=== PATIENT | female | born 1945 | race Two or more races ===

== ENCOUNTER 2023-05-23 10:43 | Inpatient (IN) | payer OTHER ==
[2023-05-23 13:56] LABS: BASO % 0.2 % (0-2.0); EOS % 2.1 % (0-4.5); HEMATOCRIT 22.6 % (32.4-45.2); HEMOGLOBIN 7.6 GM/dL (10.7-15.3); MCH 30.8 pg (25.7-33.7); MCHC 33.5 g/dl (32.0-36.0); MEAN CELL VOLUME 91.8 fl (80-96); MONO % 6.8 % (3.8-10.2); NEUT % 79.9 % (42.8-82.8); PLATELET COUNT 177 10^3/uL (134-434); RBC 2.46 M/mm3 (3.60-5.2); RDW 20.1 % (11.6-15.6); WHITE BLOOD COUNT 5.7 K/mm3 (4.0-10.0)
[2023-05-23 14:02] LABS: PROTHROMBIN TIME (PATIENT) 11.6 SEC (9.7-13.0)
[2023-05-23 14:04] LABS: ACTIVATED PTT 36.3 SECONDS (25.2-36.5)
[2023-05-23 14:09] LABS: CHLORIDE 83 mmol/L (98-107); POTASSIUM 4.9 mmol/L (3.5-5.1); SODIUM 121 mmol/L (136-145)
[2023-05-23 14:11] LABS: ALBUMIN 1.8 g/dl (3.4-5.0); ANION GAP 11 mmol/L (4-13); CO2 28 mmol/L (21-32); GLUCOSE,RANDOM 248 mg/dL (74-106)
[2023-05-23 14:14] LABS: CREATININE 3.3 mg/dL (0.55-1.3); SGPT/ALT 38 U/L (13-61)
[2023-05-23 14:15] LABS: SGOT/AST 39 U/L (15-37)
[2023-05-23 14:16] LABS: BILIRUBIN,TOTAL 0.2 mg/dL (0.2-1); TOT PROT 6.2 g/dl (6.4-8.2)
[2023-05-23 14:17] LABS: ALK PHOS 154 U/L (45-117)
[2023-05-23 14:27] LABS: BLOOD UREA NITROGEN 139.1 mg/dL (7-18)
[2023-05-23] MEDS ORDERED: MEROPENEM 1 GM in DEXTROSE 5%-WATER 100 ML IVPB ONE (15:33)
[2023-05-23] MEDS ORDERED: VANCOMYCIN 1,000 MG in DEXTROSE 5%-WATER - 250 ML IVPB ONE (15:33)
[2023-05-23] MEDS ORDERED: MEROPENEM 1 GM VIAL (RESTRICTED TO ID) IVPB ONE ×2 (15:48→16:00)
[2023-05-23] MEDS ORDERED: VANCOMYCIN 1 GRAM (PRE-DOCKED) 1,000 MG/250 ML BAG IVPB ONE (15:49)
[2023-05-23] MEDS ORDERED: FUROSEMIDE 40 MG/4 ML INJECTABLE VIAL IVPUSH ONE (19:40)
[2023-05-23] MEDS: HEPARIN NA (PORCINE) 5,000 UNITS/ML 1ML VIAL SQ SCH (21:17)
[2023-05-23] MEDS: MUPIROCIN 2% TOPICAL OINTMENT FOR DECOLONIZATION NS SCH (21:18)
[2023-05-23] MEDS: CHLORHEXIDINE GLUCONATE 4% CLEANSER FOR DECOLONIZATION TP SCH (21:19)
[2023-05-23 21:25] LABS: HEMATOCRIT 19.5 % (32.4-45.2); MCH 30.7 pg (25.7-33.7); MCHC 34.3 g/dl (32.0-36.0); MEAN CELL VOLUME 89.3 fl (80-96); MEAN PLT VOLUME 9.8 fl (7.5-11.1); PLATELET COUNT 165 10^3/uL (134-434); RBC 2.19 M/mm3 (3.60-5.2); RDW 20.6 % (11.6-15.6); WHITE BLOOD COUNT 5.2 K/mm3 (4.0-10.0)
[2023-05-23] MEDS: ATORVASTATIN CA 80 MG TABLET (FP) GT SCH (21:26)
[2023-05-23 21:37] LABS: HEMOGLOBIN 6.7 GM/dL (10.7-15.3)
[2023-05-23 21:43] LABS: CHLORIDE 82 mmol/L (98-107); POTASSIUM 4.6 mmol/L (3.5-5.1); SODIUM 122 mmol/L (136-145)
[2023-05-23 21:44] LABS: ANION GAP 11 mmol/L (4-13); CALCIUM 7.6 mg/dL (8.5-10.1); CO2 29 mmol/L (21-32)
[2023-05-23 21:45] LABS: GLUCOSE,RANDOM 245 mg/dL (74-106)
[2023-05-23 21:48] LABS: PHOSPHOROUS 2.9 mg/dL (2.5-4.9)
[2023-05-23 21:49] LABS: CREATININE 3.5 mg/dL (0.55-1.3)
[2023-05-23] MEDS ORDERED: BUMETANIDE INJECTION 1 MG/4 ML VIAL IVPUSH ONE (21:55)
[2023-05-23 22:03] LABS: BLOOD UREA NITROGEN 139.8 mg/dL (7-18)
[2023-05-23] MEDS: LATANOPROST 0.005% OPHTH SOLN 2.5ML BOTTLE OU SCH (22:38)
[2023-05-23] MEDS: INSULIN SLIDING SCALE (NOVOLOG) 1 VIAL SQ SCH (22:43)
[2023-05-24] MEDS ORDERED: FUROSEMIDE IVPB SCH (00:15)
[2023-05-24] MEDS ORDERED: DEXTROSE 5% IVPB SCH (00:15)
[2023-05-24] MEDS ORDERED: WATER IVPB SCH (00:15)
[2023-05-24] MEDS ORDERED: FUROSEMIDE INJECTION 100 MG in DEXTROSE 5%-WATER - 90 ML IVPB SCH (00:46)
[2023-05-24] MEDS: FUROSEMIDE INJECTION 100 MG in DEXTROSE 5%-WATER - 90 ML IVPB SCH ×3 (02:12→19:43)
[2023-05-24] MEDS: INSULIN SLIDING SCALE (NOVOLOG) 1 VIAL SQ SCH ×4 (06:48→21:58)
[2023-05-24] MEDS: HEPARIN NA (PORCINE) 5,000 UNITS/ML 1ML VIAL SQ SCH ×3 (06:48→21:46)
[2023-05-24 06:52] LABS: CHLORIDE 84 mmol/L (98-107); POTASSIUM 4.9 mmol/L (3.5-5.1); SODIUM 122 mmol/L (136-145)
[2023-05-24 06:54] LABS: ALBUMIN 1.9 g/dl (3.4-5.0); ANION GAP 11 mmol/L (4-13); CALCIUM 7.4 mg/dL (8.5-10.1); CO2 27 mmol/L (21-32); GLUCOSE,RANDOM 208 mg/dL (74-106)
[2023-05-24 06:57] LABS: CREATININE 3.5 mg/dL (0.55-1.3); PHOSPHOROUS 2.6 mg/dL (2.5-4.9); SGOT/AST 44 U/L (15-37); SGPT/ALT 43 U/L (13-61)
[2023-05-24 06:58] LABS: HEMATOCRIT 26.4 % (32.4-45.2); HEMOGLOBIN 9.3 GM/dL (10.7-15.3); MCH 30.7 pg (25.7-33.7); MCHC 35.4 g/dl (32.0-36.0); MEAN CELL VOLUME 86.9 fl (80-96); MEAN PLT VOLUME 10.1 fl (7.5-11.1); PLATELET COUNT 176 10^3/uL (134-434); RBC 3.04 M/mm3 (3.60-5.2); RDW 19.1 % (11.6-15.6); RETICULOCYTES 5.16 % (0.5-1.5); WHITE BLOOD COUNT 6.7 K/mm3 (4.0-10.0)
[2023-05-24 06:59] LABS: BILIRUBIN,TOTAL 0.4 mg/dL (0.2-1); TOT PROT 6.2 g/dl (6.4-8.2)
[2023-05-24 07:00] LABS: ALK PHOS 161 U/L (45-117)
[2023-05-24 07:15] LABS: IRON SERUM 79 ug/dL (50-175); TOTAL IRON BINDING CAPACITY 194 ug/dL (250-450)
[2023-05-24 07:21] LABS: BLOOD UREA NITROGEN 142.3 mg/dL (7-18)
[2023-05-24 09:21] LABS: EPI CELLS 24 /uL (0-25.1); HYALINE CASTS 7 /uL (0-3.1); URINE APPEARANCE TURBID; URINE BILIRUBIN NEGATIVE (NEGATIVE); URINE COLOR DK YELLOW; URINE GLUCOSE (UA) NEGATIVE (NEGATIVE); URINE KETONE NEGATIVE (NEGATIVE); URINE LEUK ESTERASE 1+ (NEGATIVE); URINE NITRITE NEGATIVE (NEGATIVE); URINE PROTEIN 2+ (NEGATIVE); URINE UROBILINOGEN 0.2 mg/dL (0.2-1.0); URINE WBC 63 /uL (0-25.8)
[2023-05-24 09:47] LABS: ANISOCYTOSIS 0; HELMET CELLS 0; HOWELL-JOLLY BODIES 0; MACROCYTOSIS 0; OVALOCYTE 0; ROULEAU 0; SICKELED CELLS 0; TARGET CELLS 0; TEAR DROP CELLS 0; TOXIC GRANULATION 0
[2023-05-24 10:12] LABS: URINE BACTERIA 12 /uL (0-1359); URINE RBC 227 /uL (0-23.9)
[2023-05-24] MEDS: PANTOPRAZOLE SODIUM 40 MG VIAL IVPUSH SCH (10:18)
[2023-05-24] MEDS: ZINC SULFATE 220 MG CAPSULE (FP) GT SCH (10:18)
[2023-05-24] MEDS: CLOPIDOGREL BISULFATE 75 MG TABLET (FP) GT SCH (10:18)
[2023-05-24] MEDS: ASCORBIC ACID 500 MG TABLET (FP) GT SCH (10:18)
[2023-05-24] MEDS: ASPIRIN 81 MG CHEWABLE TABLETS GT SCH (10:18)
[2023-05-24] MEDS: MUPIROCIN 2% TOPICAL OINTMENT FOR DECOLONIZATION NS SCH ×2 (10:19→21:47)
[2023-05-24] MEDS: LATANOPROST 0.005% OPHTH SOLN 2.5ML BOTTLE OU SCH (21:47)
[2023-05-24] MEDS: ATORVASTATIN CA 80 MG TABLET (FP) GT SCH (21:48)
[2023-05-24] MEDS: CHLORHEXIDINE GLUCONATE 4% CLEANSER FOR DECOLONIZATION TP SCH (21:48)
[2023-05-25] MEDS: FUROSEMIDE INJECTION 100 MG in DEXTROSE 5%-WATER - 90 ML IVPB SCH ×4 (00:10→17:04)
[2023-05-25] MEDS: HEPARIN NA (PORCINE) 5,000 UNITS/ML 1ML VIAL SQ SCH ×3 (06:38→21:18)
[2023-05-25] MEDS: INSULIN SLIDING SCALE (NOVOLOG) 1 VIAL SQ SCH ×4 (06:38→21:27)
[2023-05-25] MEDS: ZINC SULFATE 220 MG CAPSULE (FP) GT SCH (10:01)
[2023-05-25] MEDS: MUPIROCIN 2% TOPICAL OINTMENT FOR DECOLONIZATION NS SCH ×2 (10:01→21:17)
[2023-05-25] MEDS: PANTOPRAZOLE SODIUM 40 MG VIAL IVPUSH SCH (10:01)
[2023-05-25] MEDS: AMINO ACIDS/PROTEIN HYDROLYS 30 ML LIQUID.PKT PO SCH (10:01)
[2023-05-25] MEDS: ASPIRIN 81 MG CHEWABLE TABLETS GT SCH (10:01)
[2023-05-25] MEDS: CLOPIDOGREL BISULFATE 75 MG TABLET (FP) GT SCH (10:01)
[2023-05-25] MEDS: ASCORBIC ACID 500 MG TABLET (FP) GT SCH (10:01)
[2023-05-25] MEDS ORDERED: FUROSEMIDE 40 MG/4 ML INJECTABLE VIAL ONE (11:09)
[2023-05-25 12:15] LABS: CHLORIDE 83 mmol/L (98-107); POTASSIUM 4.8 mmol/L (3.5-5.1)
[2023-05-25 12:17] LABS: CALCIUM 7.8 mg/dL (8.5-10.1)
[2023-05-25 12:18] LABS: ALBUMIN 1.7 g/dl (3.4-5.0); CO2 25 mmol/L (21-32); GLUCOSE,RANDOM 226 mg/dL (74-106); MAGNESIUM 2.9 mg/dL (1.8-2.4)
[2023-05-25 12:21] LABS: BASO % 0.5 % (0-2.0); CREATININE 3.5 mg/dL (0.55-1.3); EOS % 4.1 % (0-4.5); HEMATOCRIT 26.8 % (32.4-45.2); HEMOGLOBIN 9.4 GM/dL (10.7-15.3); LYMPH % 25.5 % (8-40); MCH 31.1 pg (25.7-33.7); MCHC 35.1 g/dl (32.0-36.0); MEAN CELL VOLUME 88.7 fl (80-96); MEAN PLT VOLUME 9.6 fl (7.5-11.1); MONO % 9.9 % (3.8-10.2); PLATELET COUNT 200 10^3/uL (134-434); RBC 3.02 M/mm3 (3.60-5.2); RDW 19.5 % (11.6-15.6); SGOT/AST 53 U/L (15-37); SGPT/ALT 51 U/L (13-61); WHITE BLOOD COUNT 6.6 K/mm3 (4.0-10.0)
[2023-05-25 12:22] LABS: BILIRUBIN,TOTAL 0.4 mg/dL (0.2-1)
[2023-05-25 12:23] LABS: TOT PROT 5.8 g/dl (6.4-8.2)
[2023-05-25 12:24] LABS: ALK PHOS 161 U/L (45-117)
[2023-05-25 12:29] LABS: ANION GAP 12 mmol/L (4-13); SODIUM 120 mmol/L (136-145)
[2023-05-25 13:01] LABS: BLOOD UREA NITROGEN 143.7 mg/dL (7-18)
[2023-05-25 18:52] LABS: CHLORIDE 84 mmol/L (98-107); POTASSIUM 5.8 mmol/L (3.5-5.1)
[2023-05-25 18:54] LABS: CALCIUM 7.8 mg/dL (8.5-10.1); CO2 23 mmol/L (21-32); GLUCOSE,RANDOM 225 mg/dL (74-106)
[2023-05-25 18:57] LABS: CREATININE 3.6 mg/dL (0.55-1.3)
[2023-05-25 19:03] LABS: ANION GAP 12 mmol/L (4-13); BLOOD UREA NITROGEN 145.4 mg/dL (7-18); SODIUM 119 mmol/L (136-145)
[2023-05-25] MEDS: LATANOPROST 0.005% OPHTH SOLN 2.5ML BOTTLE OU SCH (21:18)
[2023-05-25] MEDS: ATORVASTATIN CA 80 MG TABLET (FP) GT SCH (21:20)
[2023-05-25] MEDS: CHLORHEXIDINE GLUCONATE 4% CLEANSER FOR DECOLONIZATION TP SCH (21:20)
[2023-05-26] MEDS: HEPARIN NA (PORCINE) 5,000 UNITS/ML 1ML VIAL SQ SCH ×3 (05:37→21:18)
[2023-05-26] MEDS: INSULIN SLIDING SCALE (NOVOLOG) 1 VIAL SQ SCH ×4 (06:06→21:24)
[2023-05-26 07:54] LABS: BASO % 0.6 % (0-2.0); EOS % 3.9 % (0-4.5); HEMATOCRIT 25.8 % (32.4-45.2); LYMPH % 23.1 % (8-40); MCHC 34.9 g/dl (32.0-36.0); MEAN CELL VOLUME 88.9 fl (80-96); MEAN PLT VOLUME 9.2 fl (7.5-11.1); MONO % 9.3 % (3.8-10.2); NEUT % 63.1 % (42.8-82.8); PLATELET COUNT 204 10^3/uL (134-434); RBC 2.91 M/mm3 (3.60-5.2); RDW 19.7 % (11.6-15.6); WHITE BLOOD COUNT 6.6 K/mm3 (4.0-10.0)
[2023-05-26 08:14] LABS: MAGNESIUM 2.8 mg/dL (1.8-2.4)
[2023-05-26 08:17] LABS: PHOSPHOROUS 2.9 mg/dL (2.5-4.9)
[2023-05-26 08:59] LABS: CHLORIDE 84 mmol/L (98-107); POTASSIUM 4.4 mmol/L (3.5-5.1); SODIUM 122 mmol/L (136-145)
[2023-05-26 09:04] LABS: ALBUMIN 1.8 g/dl (3.4-5.0); ANION GAP 12 mmol/L (4-13); CO2 26 mmol/L (21-32); GLUCOSE,RANDOM 282 mg/dL (74-106)
[2023-05-26 09:06] LABS: BILIRUBIN,TOTAL 0.3 mg/dL (0.2-1); TOT PROT 5.8 g/dl (6.4-8.2)
[2023-05-26 09:07] LABS: CREATININE 3.5 mg/dL (0.55-1.3); SGOT/AST 47 U/L (15-37); SGPT/ALT 49 U/L (13-61)
[2023-05-26 09:08] LABS: ALK PHOS 158 U/L (45-117)
[2023-05-26 09:10] LABS: BLOOD UREA NITROGEN 148.5 mg/dL (7-18)
[2023-05-26] MEDS: PANTOPRAZOLE SODIUM 40 MG VIAL IVPUSH SCH (09:49)
[2023-05-26] MEDS: MUPIROCIN 2% TOPICAL OINTMENT FOR DECOLONIZATION NS SCH ×2 (09:49→21:22)
[2023-05-26] MEDS: ASCORBIC ACID 500 MG TABLET (FP) GT SCH (09:49)
[2023-05-26] MEDS: ZINC SULFATE 220 MG CAPSULE (FP) GT SCH (09:49)
[2023-05-26] MEDS: ASPIRIN 81 MG CHEWABLE TABLETS GT SCH (09:49)
[2023-05-26] MEDS: CLOPIDOGREL BISULFATE 75 MG TABLET (FP) GT SCH (09:49)
[2023-05-26] MEDS: AMINO ACIDS/PROTEIN HYDROLYS 30 ML LIQUID.PKT PO SCH (09:49)
[2023-05-26 10:59] LABS: INR 1.01 (0.83-1.09); PROTHROMBIN TIME (PATIENT) 11.7 SEC (9.7-13.0)
[2023-05-26] MEDS ORDERED: INSULIN (NOVOLOG) ASPART 100 UNITS/ML 10ML VIAL ONE (14:02)
[2023-05-26] MEDS: FUROSEMIDE INJECTION 100 MG in DEXTROSE 5%-WATER - 90 ML IVPB SCH ×2 (14:04→20:22)
[2023-05-26] MEDS: CHLORHEXIDINE GLUCONATE 4% CLEANSER FOR DECOLONIZATION TP SCH (21:18)
[2023-05-26] MEDS: LATANOPROST 0.005% OPHTH SOLN 2.5ML BOTTLE OU SCH (21:22)
[2023-05-26] MEDS: ATORVASTATIN CA 80 MG TABLET (FP) GT SCH (21:24)
[2023-05-27] MEDS: INSULIN SLIDING SCALE (NOVOLOG) 1 VIAL SQ SCH ×4 (06:26→21:18)
[2023-05-27] MEDS: HEPARIN NA (PORCINE) 5,000 UNITS/ML 1ML VIAL SQ SCH ×3 (06:26→21:18)
[2023-05-27] MEDS: FUROSEMIDE INJECTION 100 MG in DEXTROSE 5%-WATER - 90 ML IVPB SCH ×2 (06:31→21:17)
[2023-05-27 07:35] LABS: BASO % 0.5 % (0-2.0); EOS % 4.3 % (0-4.5); HEMATOCRIT 24.6 % (32.4-45.2); HEMOGLOBIN 8.6 GM/dL (10.7-15.3); LYMPH % 21.7 % (8-40); MCH 31.1 pg (25.7-33.7); MCHC 34.8 g/dl (32.0-36.0); MEAN CELL VOLUME 89.3 fl (80-96); MONO % 10.5 % (3.8-10.2); PLATELET COUNT 185 10^3/uL (134-434); RBC 2.76 M/mm3 (3.60-5.2)
[2023-05-27 08:01] LABS: CHLORIDE 85 mmol/L (98-107); POTASSIUM 4.1 mmol/L (3.5-5.1); SODIUM 124 mmol/L (136-145)
[2023-05-27 08:04] LABS: ALBUMIN 1.7 g/dl (3.4-5.0); ANION GAP 9 mmol/L (4-13); CALCIUM 8.1 mg/dL (8.5-10.1); CO2 30 mmol/L (21-32); MAGNESIUM 2.8 mg/dL (1.8-2.4)
[2023-05-27 08:05] LABS: GLUCOSE,RANDOM 252 mg/dL (74-106)
[2023-05-27 08:07] LABS: CREATININE 3.3 mg/dL (0.55-1.3); PHOSPHOROUS 3.1 mg/dL (2.5-4.9); SGPT/ALT 40 U/L (13-61)
[2023-05-27 08:08] LABS: SGOT/AST 34 U/L (15-37)
[2023-05-27 08:09] LABS: BILIRUBIN,TOTAL 0.5 mg/dL (0.2-1); TOT PROT 5.7 g/dl (6.4-8.2)
[2023-05-27 08:10] LABS: ALK PHOS 141 U/L (45-117)
[2023-05-27 08:24] LABS: BLOOD UREA NITROGEN 150.8 mg/dL (7-18)
[2023-05-27] MEDS: AMINO ACIDS/PROTEIN HYDROLYS 30 ML LIQUID.PKT PO SCH (10:51)
[2023-05-27] MEDS: ZINC SULFATE 220 MG CAPSULE (FP) GT SCH (10:51)
[2023-05-27] MEDS: CLOPIDOGREL BISULFATE 75 MG TABLET (FP) GT SCH (10:51)
[2023-05-27] MEDS: ASCORBIC ACID 500 MG TABLET (FP) GT SCH (10:51)
[2023-05-27] MEDS: ASPIRIN 81 MG CHEWABLE TABLETS GT SCH (10:51)
[2023-05-27] MEDS: MUPIROCIN 2% TOPICAL OINTMENT FOR DECOLONIZATION NS SCH ×2 (10:52→21:17)
[2023-05-27] MEDS: SODIUM CHLORIDE 1 GM TABLET GT SCH (11:35)
[2023-05-27] MEDS: PANTOPRAZOLE SODIUM 40 MG VIAL IVPUSH SCH (21:16)
[2023-05-27] MEDS: CHLORHEXIDINE GLUCONATE 4% CLEANSER FOR DECOLONIZATION TP SCH (21:18)
[2023-05-27] MEDS: LATANOPROST 0.005% OPHTH SOLN 2.5ML BOTTLE OU SCH (21:18)
[2023-05-27] MEDS: ATORVASTATIN CA 80 MG TABLET (FP) GT SCH (21:18)
[2023-05-27] MEDS ORDERED: FUROSEMIDE INJECTION 100 MG in DEXTROSE 5%-WATER - 90 ML IVPB SCH (21:33)
[2023-05-28] MEDS: HEPARIN NA (PORCINE) 5,000 UNITS/ML 1ML VIAL SQ SCH ×3 (06:21→22:01)
[2023-05-28] MEDS: INSULIN SLIDING SCALE (NOVOLOG) 1 VIAL SQ SCH ×4 (06:22→22:01)
[2023-05-28 08:01] LABS: HEMATOCRIT 26.6 % (32.4-45.2); HEMOGLOBIN 9.1 GM/dL (10.7-15.3); MCH 30.8 pg (25.7-33.7); MCHC 34.1 g/dl (32.0-36.0); MEAN CELL VOLUME 90.3 fl (80-96); MEAN PLT VOLUME 8.7 fl (7.5-11.1); PLATELET COUNT 205 10^3/uL (134-434); RBC 2.95 M/mm3 (3.60-5.2); WHITE BLOOD COUNT 7.6 K/mm3 (4.0-10.0)
[2023-05-28 08:10] LABS: PROTHROMBIN TIME (PATIENT) 11.6 SEC (9.7-13.0)
[2023-05-28 08:12] LABS: ACTIVATED PTT 34.5 SECONDS (25.2-36.5)
[2023-05-28 08:25] LABS: CHLORIDE 84 mmol/L (98-107); POTASSIUM 3.7 mmol/L (3.5-5.1); SODIUM 125 mmol/L (136-145)
[2023-05-28 08:31] LABS: CALCIUM 8.3 mg/dL (8.5-10.1)
[2023-05-28 08:32] LABS: ANION GAP 11 mmol/L (4-13); CO2 30 mmol/L (21-32); GLUCOSE,RANDOM 277 mg/dL (74-106); MAGNESIUM 2.7 mg/dL (1.8-2.4)
[2023-05-28 08:35] LABS: PHOSPHOROUS 3.1 mg/dL (2.5-4.9)
[2023-05-28 08:36] LABS: BLOOD UREA NITROGEN 148.3 mg/dL (7-18); CREATININE 3.2 mg/dL (0.55-1.3)
[2023-05-28] MEDS: AMINO ACIDS/PROTEIN HYDROLYS 30 ML LIQUID.PKT PO SCH (09:40)
[2023-05-28] MEDS: MUPIROCIN 2% TOPICAL OINTMENT FOR DECOLONIZATION NS SCH (10:00)
[2023-05-28] MEDS: CLOPIDOGREL BISULFATE 75 MG TABLET (FP) GT SCH (10:00)
[2023-05-28] MEDS: FAMOTIDINE 20 MG/2.5 ML ORAL LIQUID PEG SCH (10:00)
[2023-05-28] MEDS: ZINC SULFATE 220 MG CAPSULE (FP) GT SCH (10:26)
[2023-05-28] MEDS: ASCORBIC ACID 500 MG TABLET (FP) GT SCH (10:27)
[2023-05-28] MEDS: ASPIRIN 81 MG CHEWABLE TABLETS GT SCH (10:27)
[2023-05-28] MEDS: SODIUM CHLORIDE 1 GM TABLET GT SCH (10:40)
[2023-05-28] MEDS ORDERED: INSULIN (NOVOLOG) ASPART 100 UNITS/ML 10ML VIAL ONE ×2 (18:19→22:00)
[2023-05-28] MEDS: ATORVASTATIN CA 80 MG TABLET (FP) GT SCH (22:00)
[2023-05-28] MEDS: INSULIN (LEVEMIR) 100 UNITS/ML UNITS SQ SCH (22:01)
[2023-05-28] MEDS: LATANOPROST 0.005% OPHTH SOLN 2.5ML BOTTLE OU SCH (22:01)
[2023-05-28] MEDS: CHLORHEXIDINE GLUCONATE 4% CLEANSER FOR DECOLONIZATION TP SCH (22:01)
[2023-05-29] MEDS: INSULIN (LEVEMIR) 100 UNITS/ML UNITS SQ SCH ×2 (06:17→21:51)
[2023-05-29] MEDS: HEPARIN NA (PORCINE) 5,000 UNITS/ML 1ML VIAL SQ SCH ×2 (06:17→13:02)
[2023-05-29] MEDS: FUROSEMIDE 40 MG/4 ML INJECTABLE VIAL IVPUSH SCH ×2 (06:17→15:00)
[2023-05-29] MEDS: INSULIN SLIDING SCALE (NOVOLOG) 1 VIAL SQ SCH ×4 (06:18→21:50)
[2023-05-29] MEDS: FAMOTIDINE 20 MG/2.5 ML ORAL LIQUID PEG SCH (10:18)
[2023-05-29] MEDS: ASPIRIN 81 MG CHEWABLE TABLETS GT SCH (10:18)
[2023-05-29] MEDS: ASCORBIC ACID 500 MG TABLET (FP) GT SCH (10:18)
[2023-05-29] MEDS: SODIUM CHLORIDE 1 GM TABLET GT SCH (10:18)
[2023-05-29] MEDS: CLOPIDOGREL BISULFATE 75 MG TABLET (FP) GT SCH (10:18)
[2023-05-29] MEDS: AMINO ACIDS/PROTEIN HYDROLYS 30 ML LIQUID.PKT PO SCH (10:18)
[2023-05-29] MEDS: ZINC SULFATE 220 MG CAPSULE (FP) GT SCH (10:18)
[2023-05-29 11:02] LABS: BASO % 0.5 % (0-2.0); EOS % 2.9 % (0-4.5); HEMATOCRIT 22.7 % (32.4-45.2); HEMOGLOBIN 7.7 GM/dL (10.7-15.3); MCH 30.7 pg (25.7-33.7); MCHC 34.1 g/dl (32.0-36.0); MEAN PLT VOLUME 8.5 fl (7.5-11.1); MONO % 11.5 % (3.8-10.2); NEUT % 69.1 % (42.8-82.8); PLATELET COUNT 169 10^3/uL (134-434); RBC 2.52 M/mm3 (3.60-5.2); RDW 18.5 % (11.6-15.6); WHITE BLOOD COUNT 8.4 K/mm3 (4.0-10.0)
[2023-05-29 11:26] LABS: CHLORIDE 87 mmol/L (98-107); POTASSIUM 3.4 mmol/L (3.5-5.1); SODIUM 127 mmol/L (136-145)
[2023-05-29 11:29] LABS: ANION GAP 8 mmol/L (4-13); CALCIUM 8.3 mg/dL (8.5-10.1); CO2 33 mmol/L (21-32); GLUCOSE,RANDOM 272 mg/dL (74-106)
[2023-05-29 11:30] LABS: ALBUMIN 1.5 g/dl (3.4-5.0); MAGNESIUM 2.5 mg/dL (1.8-2.4)
[2023-05-29 11:32] LABS: SGOT/AST 50 U/L (15-37); SGPT/ALT 48 U/L (13-61)
[2023-05-29 11:33] LABS: PHOSPHOROUS 3.4 mg/dL (2.5-4.9)
[2023-05-29 11:34] LABS: BILIRUBIN,TOTAL 0.7 mg/dL (0.2-1); TOT PROT 5.4 g/dl (6.4-8.2)
[2023-05-29 11:35] LABS: ALK PHOS 141 U/L (45-117)
[2023-05-29 12:09] LABS: BLOOD UREA NITROGEN 148.8 mg/dL (7-18)
[2023-05-29 15:57] VITALS: BMI 31.2
[2023-05-29] MEDS: PANTOPRAZOLE SODIUM 40 MG VIAL IVPUSH SCH ×2 (16:37→21:51)
[2023-05-29] MEDS: AMINO ACIDS 4.25%/D5W 1,000 ML IV SCH (16:37)
[2023-05-29] MEDS ORDERED: AMINO ACIDS/PROTEIN HYDROLYS 30 ML LIQUID.PKT GT SCH (17:39)
[2023-05-29] MEDS: CHLORHEXIDINE GLUCONATE 4% CLEANSER FOR DECOLONIZATION TP SCH (21:51)
[2023-05-29] MEDS: LATANOPROST 0.005% OPHTH SOLN 2.5ML BOTTLE OU SCH (21:51)
[2023-05-29] MEDS: ATORVASTATIN CA 80 MG TABLET (FP) GT SCH (21:51)
[2023-05-30] MEDS: FUROSEMIDE 40 MG/4 ML INJECTABLE VIAL IVPUSH SCH ×2 (06:09→13:43)
[2023-05-30] MEDS: INSULIN (LEVEMIR) 100 UNITS/ML UNITS SQ SCH ×2 (06:09→22:31)
[2023-05-30] MEDS: INSULIN SLIDING SCALE (NOVOLOG) 1 VIAL SQ SCH ×4 (06:09→22:50)
[2023-05-30 07:11] LABS: CHLORIDE 88 mmol/L (98-107); POTASSIUM 3.3 mmol/L (3.5-5.1); SODIUM 130 mmol/L (136-145)
[2023-05-30 07:14] LABS: ALBUMIN 1.6 g/dl (3.4-5.0); ANION GAP 12 mmol/L (4-13); CO2 31 mmol/L (21-32); GLUCOSE,RANDOM 143 mg/dL (74-106); MAGNESIUM 2.4 mg/dL (1.8-2.4)
[2023-05-30 07:17] LABS: CREATININE 2.9 mg/dL (0.55-1.3); PHOSPHOROUS 3.3 mg/dL (2.5-4.9); SGOT/AST 39 U/L (15-37)
[2023-05-30 07:19] LABS: ALK PHOS 144 U/L (45-117); TOT PROT 5.8 g/dl (6.4-8.2)
[2023-05-30 07:26] LABS: CALCIUM 7.8 mg/dL (8.5-10.1); SGPT/ALT 41 U/L (13-61)
[2023-05-30 07:34] LABS: BLOOD UREA NITROGEN 151.7 mg/dL (7-18)
[2023-05-30 07:35] LABS: BASO % 0.6 % (0-2.0); EOS % 2.3 % (0-4.5); HEMATOCRIT 23.5 % (32.4-45.2); HEMOGLOBIN 7.8 GM/dL (10.7-15.3); LYMPH % 17.2 % (8-40); MCH 29.8 pg (25.7-33.7); MCHC 33.3 g/dl (32.0-36.0); MEAN CELL VOLUME 89.6 fl (80-96); MEAN PLT VOLUME 8.6 fl (7.5-11.1); NEUT % 71.9 % (42.8-82.8); PLATELET COUNT 177 10^3/uL (134-434); RBC 2.63 M/mm3 (3.60-5.2); RDW 18.7 % (11.6-15.6); WHITE BLOOD COUNT 11.4 K/mm3 (4.0-10.0)
[2023-05-30] MEDS: KCL 10 MEQ IVPB 10 MEQ/100 ML INFUS.BAG IVPB SCH ×2 (09:32→10:52)
[2023-05-30] MEDS: PANTOPRAZOLE SODIUM 40 MG VIAL IVPUSH SCH ×2 (09:33→22:31)
[2023-05-30] MEDS: ZINC SULFATE 220 MG CAPSULE (FP) GT SCH (09:33)
[2023-05-30] MEDS ORDERED: VITAMIN B COMP W-C 1 EA TABLET (NEPHRO-VITE) GT SCH (10:00)
[2023-05-30] MEDS: CLOPIDOGREL BISULFATE 75 MG TABLET (FP) PO SCH (17:21)
[2023-05-30] MEDS: ASPIRIN 81 MG CHEWABLE TABLETS GT SCH (17:21)
[2023-05-30] MEDS: AMINO ACIDS 4.25%/D5W 1,000 ML IV SCH (17:21)
[2023-05-30 18:53] LABS: GAMMA GLUTAMYL TRANSPEPTIDASE 49 U/L (5-85)
[2023-05-30] MEDS: CHLORHEXIDINE GLUCONATE 4% CLEANSER FOR DECOLONIZATION TP SCH (22:31)
[2023-05-30] MEDS: ATORVASTATIN CA 80 MG TABLET (FP) GT SCH (22:31)
[2023-05-30] MEDS: LATANOPROST 0.005% OPHTH SOLN 2.5ML BOTTLE OU SCH (22:50)
[2023-05-31] MEDS: FUROSEMIDE 40 MG/4 ML INJECTABLE VIAL IVPUSH SCH ×2 (05:34→16:18)
[2023-05-31] MEDS: INSULIN (LEVEMIR) 100 UNITS/ML UNITS SQ SCH ×2 (06:16→22:30)
[2023-05-31] MEDS: INSULIN SLIDING SCALE (NOVOLOG) 1 VIAL SQ SCH ×4 (06:16→22:31)
[2023-05-31 09:28] LABS: BASO % 0.4 % (0-2.0); EOS % 0.9 % (0-4.5); HEMATOCRIT 24.7 % (32.4-45.2); HEMOGLOBIN 8.4 GM/dL (10.7-15.3); LYMPH % 13.9 % (8-40); MCH 30.6 pg (25.7-33.7); MCHC 34.2 g/dl (32.0-36.0); MEAN CELL VOLUME 89.3 fl (80-96); MEAN PLT VOLUME 8.7 fl (7.5-11.1); MONO % 6.5 % (3.8-10.2); NEUT % 78.3 % (42.8-82.8); PLATELET COUNT 190 10^3/uL (134-434); RBC 2.77 M/mm3 (3.60-5.2); RDW 18.1 % (11.6-15.6); WHITE BLOOD COUNT 10.4 K/mm3 (4.0-10.0)
[2023-05-31 09:41] LABS: CHLORIDE 86 mmol/L (98-107); POTASSIUM 3.3 mmol/L (3.5-5.1); SODIUM 128 mmol/L (136-145)
[2023-05-31 09:49] LABS: ALBUMIN 1.5 g/dl (3.4-5.0); ANION GAP 12 mmol/L (4-13); CO2 30 mmol/L (21-32); GLUCOSE,RANDOM 172 mg/dL (74-106); MAGNESIUM 2.3 mg/dL (1.8-2.4)
[2023-05-31 09:53] LABS: CREATININE 2.9 mg/dL (0.55-1.3); PHOSPHOROUS 3.4 mg/dL (2.5-4.9); SGOT/AST 41 U/L (15-37); SGPT/ALT 38 U/L (13-61)
[2023-05-31 09:54] LABS: BILIRUBIN,TOTAL 0.9 mg/dL (0.2-1); TOT PROT 5.7 g/dl (6.4-8.2)
[2023-05-31 09:55] LABS: ALK PHOS 156 U/L (45-117)
[2023-05-31] MEDS: ASPIRIN 81 MG CHEWABLE TABLETS GT SCH (10:08)
[2023-05-31] MEDS: ZINC SULFATE 220 MG CAPSULE (FP) GT SCH (10:08)
[2023-05-31] MEDS: CLOPIDOGREL BISULFATE 75 MG TABLET (FP) PO SCH (10:08)
[2023-05-31] MEDS: VITAMIN B COMP W-C 1 EA TABLET (NEPHRO-VITE) GT SCH (10:09)
[2023-05-31] MEDS: PANTOPRAZOLE SODIUM 40 MG VIAL IVPUSH SCH ×2 (10:09→22:34)
[2023-05-31] MEDS: AMINO ACIDS/PROTEIN HYDROLYS 30 ML LIQUID.PKT GT SCH (10:09)
[2023-05-31 10:14] LABS: BLOOD UREA NITROGEN 155.1 mg/dL (7-18)
[2023-05-31] MEDS: KCL 10 MEQ IVPB 10 MEQ/100 ML INFUS.BAG IVPB SCH ×3 (14:47→18:05)
[2023-05-31] MEDS ORDERED: AMINO ACIDS 4.25%/D5W 1,000 ML IV SCH (16:15)
[2023-05-31 20:07] LABS: ANTIGLOMERULAR BASEMENT MEN.AB <0.2 units (0.0-0.9)
[2023-05-31] MEDS: ATORVASTATIN CA 80 MG TABLET (FP) GT SCH (22:31)
[2023-05-31] MEDS: LATANOPROST 0.005% OPHTH SOLN 2.5ML BOTTLE OU SCH (22:34)
[2023-06-01] MEDS: INSULIN SLIDING SCALE (NOVOLOG) 1 VIAL SQ SCH ×4 (06:48→23:10)
[2023-06-01] MEDS: INSULIN (LEVEMIR) 100 UNITS/ML UNITS SQ SCH ×2 (06:48→23:10)
[2023-06-01] MEDS: FUROSEMIDE 40 MG/4 ML INJECTABLE VIAL IVPUSH SCH ×2 (06:48→13:54)
[2023-06-01 08:07] LABS: BASO % 0.4 % (0-2.0); EOS % 1.5 % (0-4.5); HEMATOCRIT 25.7 % (32.4-45.2); HEMOGLOBIN 8.7 GM/dL (10.7-15.3); MCH 30.5 pg (25.7-33.7); MCHC 33.8 g/dl (32.0-36.0); MEAN CELL VOLUME 90.1 fl (80-96); MEAN PLT VOLUME 8.4 fl (7.5-11.1); MONO % 7.6 % (3.8-10.2); NEUT % 77.5 % (42.8-82.8); PLATELET COUNT 254 10^3/uL (134-434); RBC 2.85 M/mm3 (3.60-5.2); RDW 18.1 % (11.6-15.6); WHITE BLOOD COUNT 11.2 K/mm3 (4.0-10.0)
[2023-06-01 08:27] LABS: CHLORIDE 88 mmol/L (98-107); POTASSIUM 3.3 mmol/L (3.5-5.1); SODIUM 129 mmol/L (136-145)
[2023-06-01 08:34] LABS: CALCIUM 7.8 mg/dL (8.5-10.1)
[2023-06-01 08:35] LABS: ALBUMIN 1.5 g/dl (3.4-5.0); ANION GAP 11 mmol/L (4-13); CO2 30 mmol/L (21-32); GLUCOSE,RANDOM 236 mg/dL (74-106); MAGNESIUM 2.3 mg/dL (1.8-2.4)
[2023-06-01 08:38] LABS: CREATININE 2.8 mg/dL (0.55-1.3); SGOT/AST 80 U/L (15-37); SGPT/ALT 68 U/L (13-61)
[2023-06-01 08:39] LABS: TOT PROT 5.9 g/dl (6.4-8.2)
[2023-06-01 08:40] LABS: BILIRUBIN,TOTAL 0.4 mg/dL (0.2-1)
[2023-06-01 09:13] LABS: ALK PHOS 247 U/L (45-117); BLOOD UREA NITROGEN 151.9 mg/dL (7-18)
[2023-06-01] MEDS: AMINO ACIDS/PROTEIN HYDROLYS 30 ML LIQUID.PKT GT SCH (09:38)
[2023-06-01] MEDS: CLOPIDOGREL BISULFATE 75 MG TABLET (FP) PO SCH (09:38)
[2023-06-01] MEDS: VITAMIN B COMP W-C 1 EA TABLET (NEPHRO-VITE) GT SCH (09:38)
[2023-06-01] MEDS: ASPIRIN 81 MG CHEWABLE TABLETS GT SCH (09:38)
[2023-06-01] MEDS: PANTOPRAZOLE SODIUM 40 MG VIAL IVPUSH SCH ×2 (09:39→23:00)
[2023-06-01] MEDS: ZINC SULFATE 220 MG CAPSULE (FP) GT SCH (09:39)
[2023-06-01] MEDS: KCL 10 MEQ IVPB 10 MEQ/100 ML INFUS.BAG IVPB SCH ×3 (12:51→15:02)
[2023-06-01 16:07] LABS: ATYPICAL pANCA <1:20 titer (Neg:<1:20); C-ANCA <1:20 titer (Neg:<1:20)
[2023-06-01] MEDS: LATANOPROST 0.005% OPHTH SOLN 2.5ML BOTTLE OU SCH (23:00)
[2023-06-01] MEDS: ATORVASTATIN CA 80 MG TABLET (FP) GT SCH (23:10)
[2023-06-02] MEDS: INSULIN (LEVEMIR) 100 UNITS/ML UNITS SQ SCH ×2 (06:18→21:36)
[2023-06-02] MEDS: INSULIN SLIDING SCALE (NOVOLOG) 1 VIAL SQ SCH ×4 (07:19→21:37)
[2023-06-02] MEDS: AMINO ACIDS/PROTEIN HYDROLYS 30 ML LIQUID.PKT GT SCH (08:53)
[2023-06-02] MEDS: ZINC SULFATE 220 MG CAPSULE (FP) GT SCH (09:07)
[2023-06-02] MEDS: CLOPIDOGREL BISULFATE 75 MG TABLET (FP) PO SCH (09:07)
[2023-06-02] MEDS: PANTOPRAZOLE SODIUM 40 MG VIAL IVPUSH SCH ×2 (09:07→21:36)
[2023-06-02] MEDS: ASPIRIN 81 MG CHEWABLE TABLETS GT SCH (09:07)
[2023-06-02] MEDS: VITAMIN B COMP W-C 1 EA TABLET (NEPHRO-VITE) GT SCH (09:07)
[2023-06-02 09:14] LABS: BASO % 0.6 % (0-2.0); EOS % 2.4 % (0-4.5); HEMATOCRIT 25.4 % (32.4-45.2); HEMOGLOBIN 8.5 GM/dL (10.7-15.3); LYMPH % 13.6 % (8-40); MCH 30.2 pg (25.7-33.7); MCHC 33.3 g/dl (32.0-36.0); MEAN CELL VOLUME 90.7 fl (80-96); MEAN PLT VOLUME 8.4 fl (7.5-11.1); MONO % 8.1 % (3.8-10.2); NEUT % 75.3 % (42.8-82.8); PLATELET COUNT 306 10^3/uL (134-434); WHITE BLOOD COUNT 10.1 K/mm3 (4.0-10.0)
[2023-06-02 09:35] LABS: CHLORIDE 90 mmol/L (98-107); POTASSIUM 3.6 mmol/L (3.5-5.1); SODIUM 130 mmol/L (136-145)
[2023-06-02 09:41] LABS: ALBUMIN 1.5 g/dl (3.4-5.0); ANION GAP 10 mmol/L (4-13); CO2 30 mmol/L (21-32); GLUCOSE,RANDOM 285 mg/dL (74-106); SGPT/ALT 57 U/L (13-61)
[2023-06-02 09:43] LABS: BILIRUBIN,TOTAL 0.4 mg/dL (0.2-1); TOT PROT 6.1 g/dl (6.4-8.2)
[2023-06-02 09:45] LABS: ALK PHOS 239 U/L (45-117); SGOT/AST 53 U/L (15-37)
[2023-06-02 09:56] LABS: BLOOD UREA NITROGEN 166.8 mg/dL (7-18)
[2023-06-02] MEDS ORDERED: FUROSEMIDE 40 MG/4 ML INJECTABLE VIAL IVPUSH SCH (10:00)
[2023-06-02] MEDS: ATORVASTATIN CA 80 MG TABLET (FP) GT SCH (21:36)
[2023-06-02] MEDS: LATANOPROST 0.005% OPHTH SOLN 2.5ML BOTTLE OU SCH (23:03)
[2023-06-03] MEDS: INSULIN (LEVEMIR) 100 UNITS/ML UNITS SQ SCH ×2 (07:02→21:25)
[2023-06-03] MEDS: INSULIN SLIDING SCALE (NOVOLOG) 1 VIAL SQ SCH ×4 (07:03→21:29)
[2023-06-03] MEDS: AMINO ACIDS/PROTEIN HYDROLYS 30 ML LIQUID.PKT GT SCH (09:01)
[2023-06-03] MEDS: ASPIRIN 81 MG CHEWABLE TABLETS GT SCH (09:01)
[2023-06-03] MEDS: ZINC SULFATE 220 MG CAPSULE (FP) GT SCH (09:01)
[2023-06-03] MEDS: CLOPIDOGREL BISULFATE 75 MG TABLET (FP) PO SCH (09:01)
[2023-06-03] MEDS: VITAMIN B COMP W-C 1 EA TABLET (NEPHRO-VITE) GT SCH (09:01)
[2023-06-03] MEDS: PANTOPRAZOLE SODIUM 40 MG VIAL IVPUSH SCH ×2 (09:01→21:28)
[2023-06-03 09:19] LABS: BASO % 0.6 % (0-2.0); EOS % 3.9 % (0-4.5); HEMATOCRIT 22.3 % (32.4-45.2); HEMOGLOBIN 7.6 GM/dL (10.7-15.3); LYMPH % 15.9 % (8-40); MCH 30.8 pg (25.7-33.7); MCHC 34.1 g/dl (32.0-36.0); MEAN CELL VOLUME 90.5 fl (80-96); MEAN PLT VOLUME 8.1 fl (7.5-11.1); MONO % 8.1 % (3.8-10.2); NEUT % 71.5 % (42.8-82.8); PLATELET COUNT 285 10^3/uL (134-434); RBC 2.47 M/mm3 (3.60-5.2); RDW 17.7 % (11.6-15.6); WHITE BLOOD COUNT 9.2 K/mm3 (4.0-10.0)
[2023-06-03 11:56] LABS: ALBUMIN 1.5 g/dl (3.4-5.0); ALK PHOS 211 U/L (45-117); ANION GAP 9 mmol/L (4-13); BILIRUBIN,TOTAL 0.8 mg/dL (0.2-1); BLOOD UREA NITROGEN 165.2 mg/dL (7-18); CALCIUM 8.5 mg/dL (8.5-10.1); CHLORIDE 93 mmol/L (98-107); CO2 30 mmol/L (21-32); GLUCOSE,RANDOM 240 mg/dL (74-106); POTASSIUM 3.1 mmol/L (3.5-5.1); SGOT/AST 45 U/L (15-37); SGPT/ALT 48 U/L (13-61); SODIUM 132 mmol/L (136-145); TOT PROT 5.9 g/dl (6.4-8.2)
[2023-06-03] MEDS: KCL 10 MEQ IVPB 10 MEQ/100 ML INFUS.BAG IVPB SCH ×4 (15:28→20:50)
[2023-06-03] MEDS: ATORVASTATIN CA 80 MG TABLET (FP) GT SCH (21:27)
[2023-06-03] MEDS: LATANOPROST 0.005% OPHTH SOLN 2.5ML BOTTLE OU SCH (22:22)
[2023-06-04] MEDS: INSULIN (LEVEMIR) 100 UNITS/ML UNITS SQ SCH ×2 (06:27→23:51)
[2023-06-04] MEDS: INSULIN SLIDING SCALE (NOVOLOG) 1 VIAL SQ SCH ×3 (06:45→17:25)
[2023-06-04] MEDS: ZINC SULFATE 220 MG CAPSULE (FP) GT SCH (10:45)
[2023-06-04] MEDS: CLOPIDOGREL BISULFATE 75 MG TABLET (FP) PO SCH (10:45)
[2023-06-04] MEDS: ASPIRIN 81 MG CHEWABLE TABLETS GT SCH (10:45)
[2023-06-04] MEDS: VITAMIN B COMP W-C 1 EA TABLET (NEPHRO-VITE) GT SCH (10:45)
[2023-06-04] MEDS: PANTOPRAZOLE SODIUM 40 MG VIAL IVPUSH SCH ×2 (10:46→23:52)
[2023-06-04] MEDS: AMINO ACIDS/PROTEIN HYDROLYS 30 ML LIQUID.PKT GT SCH (10:46)
[2023-06-04 11:27] LABS: BASO % 0.3 % (0-2.0); EOS % 4.5 % (0-4.5); HEMOGLOBIN 7.9 GM/dL (10.7-15.3); MCHC 33.1 g/dl (32.0-36.0); MEAN CELL VOLUME 90.8 fl (80-96); MEAN PLT VOLUME 7.8 fl (7.5-11.1); MONO % 7.9 % (3.8-10.2); NEUT % 71.3 % (42.8-82.8); PLATELET COUNT 345 10^3/uL (134-434); RBC 2.64 M/mm3 (3.60-5.2); RDW 17.5 % (11.6-15.6); WHITE BLOOD COUNT 9.3 K/mm3 (4.0-10.0)
[2023-06-04 11:41] LABS: CHLORIDE 97 mmol/L (98-107); POTASSIUM 3.5 mmol/L (3.5-5.1); SODIUM 137 mmol/L (136-145)
[2023-06-04 11:43] LABS: ALBUMIN 1.6 g/dl (3.4-5.0); ANION GAP 11 mmol/L (4-13); CALCIUM 8.7 mg/dL (8.5-10.1); CO2 29 mmol/L (21-32); GLUCOSE,RANDOM 221 mg/dL (74-106); MAGNESIUM 2.5 mg/dL (1.8-2.4)
[2023-06-04 11:46] LABS: CREATININE 3.1 mg/dL (0.55-1.3)
[2023-06-04 11:47] LABS: SGOT/AST 48 U/L (15-37); SGPT/ALT 48 U/L (13-61)
[2023-06-04 11:48] LABS: BILIRUBIN,TOTAL 0.4 mg/dL (0.2-1); TOT PROT 6.3 g/dl (6.4-8.2)
[2023-06-04 11:49] LABS: ALK PHOS 220 U/L (45-117)
[2023-06-04 12:24] LABS: BLOOD UREA NITROGEN 175.8 mg/dL (7-18)
[2023-06-04] MEDS: FUROSEMIDE 40 MG/4 ML INJECTABLE VIAL IVPUSH SCH (12:55)
[2023-06-04] MEDS ORDERED: SODIUM CHLORIDE 250 ML IV PRN (13:58)
[2023-06-04] MEDS: ATORVASTATIN CA 80 MG TABLET (FP) GT SCH (23:51)
[2023-06-04] MEDS: LATANOPROST 0.005% OPHTH SOLN 2.5ML BOTTLE OU SCH (23:52)
[2023-06-05] MEDS: INSULIN SLIDING SCALE (NOVOLOG) 1 VIAL SQ SCH ×5 (00:01→21:26)
[2023-06-05] MEDS: ATORVASTATIN CA 80 MG TABLET (FP) GT SCH ×2 (00:03→21:26)
[2023-06-05] MEDS: INSULIN (LEVEMIR) 100 UNITS/ML UNITS SQ SCH (06:07)
[2023-06-05 09:07] LABS: BASO % 0.8 % (0-2.0); EOS % 6.5 % (0-4.5); HEMATOCRIT 21.8 % (32.4-45.2); HEMOGLOBIN 7.3 GM/dL (10.7-15.3); LYMPH % 20.7 % (8-40); MCH 30.5 pg (25.7-33.7); MCHC 33.4 g/dl (32.0-36.0); MEAN CELL VOLUME 91.4 fl (80-96); MONO % 8.6 % (3.8-10.2); NEUT % 63.4 % (42.8-82.8); PLATELET COUNT 325 10^3/uL (134-434); RBC 2.38 M/mm3 (3.60-5.2); RDW 17.9 % (11.6-15.6); WHITE BLOOD COUNT 7.8 K/mm3 (4.0-10.0)
[2023-06-05] MEDS: FUROSEMIDE 40 MG/4 ML INJECTABLE VIAL IVPUSH SCH (09:34)
[2023-06-05] MEDS: PANTOPRAZOLE SODIUM 40 MG VIAL IVPUSH SCH ×2 (09:35→21:27)
[2023-06-05] MEDS: AMINO ACIDS/PROTEIN HYDROLYS 30 ML LIQUID.PKT GT SCH (09:36)
[2023-06-05] MEDS: ASPIRIN 81 MG CHEWABLE TABLETS GT SCH (09:36)
[2023-06-05] MEDS: ZINC SULFATE 220 MG CAPSULE (FP) GT SCH (09:36)
[2023-06-05] MEDS: VITAMIN B COMP W-C 1 EA TABLET (NEPHRO-VITE) GT SCH (09:36)
[2023-06-05] MEDS: CLOPIDOGREL BISULFATE 75 MG TABLET (FP) PO SCH (09:36)
[2023-06-05 09:47] LABS: CHLORIDE 99 mmol/L (98-107); POTASSIUM 3.2 mmol/L (3.5-5.1); SODIUM 140 mmol/L (136-145)
[2023-06-05 09:52] LABS: CALCIUM 8.5 mg/dL (8.5-10.1)
[2023-06-05 09:53] LABS: ALBUMIN 1.6 g/dl (3.4-5.0); ANION GAP 11 mmol/L (4-13); CO2 30 mmol/L (21-32); GLUCOSE,RANDOM 77 mg/dL (74-106); MAGNESIUM 2.5 mg/dL (1.8-2.4)
[2023-06-05 09:55] LABS: SGPT/ALT 39 U/L (13-61)
[2023-06-05 09:56] LABS: CREATININE 3.1 mg/dL (0.55-1.3); PHOSPHOROUS 3.8 mg/dL (2.5-4.9); SGOT/AST 36 U/L (15-37)
[2023-06-05 09:57] LABS: BILIRUBIN,TOTAL 0.4 mg/dL (0.2-1)
[2023-06-05 10:35] LABS: ALK PHOS 184 U/L (45-117); BLOOD UREA NITROGEN 167.2 mg/dL (7-18)
[2023-06-05] MEDS ORDERED: POTASSIUM CHLORIDE ORAL LIQUID 20 MEQ/15 ML PO ONE (12:27)
[2023-06-05] MEDS ORDERED: DEXTROSE 50%-WATER 25 GM/50 ML DISP.SYRIN IVPUSH ONE (12:30)
[2023-06-05] MEDS: LATANOPROST 0.005% OPHTH SOLN 2.5ML BOTTLE OU SCH (21:28)
[2023-06-06] MEDS: INSULIN SLIDING SCALE (NOVOLOG) 1 VIAL SQ SCH ×3 (06:12→16:45)
[2023-06-06 09:05] LABS: BASO % 0.7 % (0-2.0); HEMATOCRIT 24.9 % (32.4-45.2); HEMOGLOBIN 8.5 GM/dL (10.7-15.3); LYMPH % 18.8 % (8-40); MCHC 34.1 g/dl (32.0-36.0); MEAN CELL VOLUME 90.8 fl (80-96); MEAN PLT VOLUME 8.2 fl (7.5-11.1); MONO % 7.3 % (3.8-10.2); NEUT % 68.2 % (42.8-82.8); PLATELET COUNT 323 10^3/uL (134-434); RBC 2.75 M/mm3 (3.60-5.2); WHITE BLOOD COUNT 7.2 K/mm3 (4.0-10.0)
[2023-06-06 09:11] LABS: INR 1.15 (0.83-1.09); PROTHROMBIN TIME (PATIENT) 13.3 SEC (9.7-13.0)
[2023-06-06 09:24] LABS: CHLORIDE 100 mmol/L (98-107); POTASSIUM 3.9 mmol/L (3.5-5.1); SODIUM 138 mmol/L (136-145)
[2023-06-06 09:35] LABS: ALBUMIN 1.8 g/dl (3.4-5.0); ANION GAP 10 mmol/L (4-13); CALCIUM 8.4 mg/dL (8.5-10.1); CO2 28 mmol/L (21-32)
[2023-06-06 09:36] LABS: GLUCOSE,RANDOM 227 mg/dL (74-106); MAGNESIUM 2.1 mg/dL (1.8-2.4)
[2023-06-06 09:38] LABS: CREATININE 2.3 mg/dL (0.55-1.3)
[2023-06-06] MEDS: AMINO ACIDS/PROTEIN HYDROLYS 30 ML LIQUID.PKT GT SCH (09:38)
[2023-06-06 09:39] LABS: SGOT/AST 44 U/L (15-37); SGPT/ALT 44 U/L (13-61)
[2023-06-06 09:40] LABS: BILIRUBIN,TOTAL 0.7 mg/dL (0.2-1); TOT PROT 6.3 g/dl (6.4-8.2)
[2023-06-06 09:41] LABS: ALK PHOS 197 U/L (45-117)
[2023-06-06 10:17] LABS: BLOOD UREA NITROGEN 105.9 mg/dL (7-18)
[2023-06-06] MEDS: VITAMIN B COMP W-C 1 EA TABLET (NEPHRO-VITE) GT SCH (10:44)
[2023-06-06] MEDS: ASPIRIN 81 MG CHEWABLE TABLETS GT SCH (10:44)
[2023-06-06] MEDS: CLOPIDOGREL BISULFATE 75 MG TABLET (FP) PO SCH (10:44)
[2023-06-06] MEDS: PANTOPRAZOLE SODIUM 40 MG VIAL IVPUSH SCH ×2 (10:45→23:50)
[2023-06-06] MEDS: ZINC SULFATE 220 MG CAPSULE (FP) GT SCH (10:45)
[2023-06-06] MEDS ORDERED: SODIUM CHLORIDE 250 ML IV PRN (13:21)
[2023-06-06] MEDS ORDERED: LIDOCAINE HCL 1%, 10 MG/ML (20ML VIAL) ONE (13:34)
[2023-06-06] MEDS ORDERED: HEPARIN NA (PORCINE) 5,000 UNITS/ML 1ML VIAL ONE (13:34)
[2023-06-06] MEDS ORDERED: PROMETHAZINE HCL 25 MG/1 ML VIAL IVPB PRN ×2 (16:12→17:31)
[2023-06-06] MEDS ORDERED: ONDANSETRON 4 MG/2 ML VIAL IVPUSH PRN ×2 (16:12→17:31)
[2023-06-06] MEDS ORDERED: SODIUM CHLORIDE 1,000 ML IV SCH (16:15)
[2023-06-06] MEDS ORDERED: CLINDAMYCIN PHOSPHATE 600 MG/4 ML VIAL ONE (16:30)
[2023-06-06] MEDS ORDERED: METOPROLOL TARTRATE 5 MG/5 ML VIAL ONE (16:31)
[2023-06-06] MEDS ORDERED: CLINDAMYCIN 600 MG PREMIX BAG IVPB ONE (16:35)
[2023-06-06] MEDS ORDERED: HEPARIN NA (PORCINE) 5,000 UNITS/ML 1ML VIAL SQ ONE ×2 (16:39)
[2023-06-06] MEDS ORDERED: LIDOCAINE HCL 1%, 10 MG/ML (20ML VIAL) INF ONE ×3 (16:39)
[2023-06-06] MEDS: SODIUM CHLORIDE 1,000 ML IV SCH (17:30)
[2023-06-06] MEDS: ATORVASTATIN CA 80 MG TABLET (FP) GT SCH (23:49)
[2023-06-06] MEDS: LATANOPROST 0.005% OPHTH SOLN 2.5ML BOTTLE OU SCH (23:50)
[2023-06-06] MEDS: INSULIN (LEVEMIR) 100 UNITS/ML UNITS SQ SCH (23:58)
[2023-06-07] MEDS: INSULIN SLIDING SCALE (NOVOLOG) 1 VIAL SQ SCH ×5 (00:02→22:09)
[2023-06-07] MEDS: INSULIN (LEVEMIR) 100 UNITS/ML UNITS SQ SCH ×2 (07:04→23:40)
[2023-06-07] MEDS ORDERED: SODIUM CHLORIDE 250 ML IV PRN (09:00)
[2023-06-07 09:25] LABS: HEMATOCRIT 25.5 % (32.4-45.2); HEMOGLOBIN 8.5 GM/dL (10.7-15.3); MCH 30.2 pg (25.7-33.7); MCHC 33.2 g/dl (32.0-36.0); MEAN CELL VOLUME 90.9 fl (80-96); MEAN PLT VOLUME 8.1 fl (7.5-11.1); PLATELET COUNT 361 10^3/uL (134-434); RBC 2.81 M/mm3 (3.60-5.2); RDW 16.7 % (11.6-15.6); WHITE BLOOD COUNT 8.1 K/mm3 (4.0-10.0)
[2023-06-07] MEDS ORDERED: EPOETIN ALFA-EPBX 4,000 UNIT/ML VIAL SQ ONE ×2 (10:00→13:21)
[2023-06-07] MEDS: AMINO ACIDS/PROTEIN HYDROLYS 30 ML LIQUID.PKT GT SCH (10:54)
[2023-06-07] MEDS: CARVEDILOL 12.5 MG TABLET (FP) GT SCH ×2 (11:00→22:10)
[2023-06-07] MEDS: ASPIRIN 81 MG CHEWABLE TABLETS GT SCH (11:00)
[2023-06-07] MEDS: amLODIPine BESYLATE 5 MG TABLET (FP) GT SCH (11:01)
[2023-06-07] MEDS: VITAMIN B COMP W-C 1 EA TABLET (NEPHRO-VITE) GT SCH (11:01)
[2023-06-07] MEDS: CLOPIDOGREL BISULFATE 75 MG TABLET (FP) PO SCH (11:02)
[2023-06-07] MEDS: PANTOPRAZOLE SODIUM 40 MG VIAL IVPUSH SCH ×2 (11:05→22:10)
[2023-06-07] MEDS: ZINC SULFATE 220 MG CAPSULE (FP) GT SCH (11:05)
[2023-06-07 11:16] LABS: ANION GAP 9 mmol/L (4-13); BLOOD UREA NITROGEN 110.5 mg/dL (7-18); CALCIUM 8.4 mg/dL (8.5-10.1); CHLORIDE 104 mmol/L (98-107); CO2 29 mmol/L (21-32); CREATININE 2.4 mg/dL (0.55-1.3); GLUCOSE,RANDOM 192 mg/dL (74-106); POTASSIUM 3.6 mmol/L (3.5-5.1); SODIUM 142 mmol/L (136-145)
[2023-06-07] MEDS: SODIUM CHLORIDE 1,000 ML IV SCH (18:02)
[2023-06-07] MEDS: ATORVASTATIN CA 80 MG TABLET (FP) GT SCH (22:10)
[2023-06-07] MEDS: LATANOPROST 0.005% OPHTH SOLN 2.5ML BOTTLE OU SCH (22:10)
[2023-06-08] MEDS: INSULIN (LEVEMIR) 100 UNITS/ML UNITS SQ SCH ×2 (06:39→21:42)
[2023-06-08] MEDS: INSULIN SLIDING SCALE (NOVOLOG) 1 VIAL SQ SCH ×4 (06:41→21:45)
[2023-06-08] MEDS: AMINO ACIDS/PROTEIN HYDROLYS 30 ML LIQUID.PKT GT SCH (09:07)
[2023-06-08] MEDS: ZINC SULFATE 220 MG CAPSULE (FP) GT SCH (09:37)
[2023-06-08] MEDS: PANTOPRAZOLE SODIUM 40 MG VIAL IVPUSH SCH ×2 (09:37→21:47)
[2023-06-08] MEDS: CARVEDILOL 12.5 MG TABLET (FP) GT SCH ×2 (09:38→21:42)
[2023-06-08] MEDS: amLODIPine BESYLATE 5 MG TABLET (FP) GT SCH (09:38)
[2023-06-08] MEDS: VITAMIN B COMP W-C 1 EA TABLET (NEPHRO-VITE) GT SCH (09:38)
[2023-06-08] MEDS: CLOPIDOGREL BISULFATE 75 MG TABLET (FP) PO SCH (09:38)
[2023-06-08] MEDS: ASPIRIN 81 MG CHEWABLE TABLETS GT SCH (09:38)
[2023-06-08 10:38] LABS: POTASSIUM 3.8 mmol/L (3.5-5.1)
[2023-06-08 11:31] LABS: CALCIUM 8.5 mg/dL (8.5-10.1)
[2023-06-08 11:32] LABS: ALBUMIN 1.7 g/dl (3.4-5.0)
[2023-06-08 11:34] LABS: CREATININE 1.8 mg/dL (0.55-1.3)
[2023-06-08 11:36] LABS: BILIRUBIN,TOTAL 0.3 mg/dL (0.2-1); TOT PROT 6.1 g/dl (6.4-8.2)
[2023-06-08 11:37] LABS: BASO % 0.8 % (0-2.0); EOS % 4.8 % (0-4.5); HEMATOCRIT 22.6 % (32.4-45.2); HEMOGLOBIN 7.4 GM/dL (10.7-15.3); LYMPH % 17.8 % (8-40); MCH 30.2 pg (25.7-33.7); MCHC 32.8 g/dl (32.0-36.0); MEAN PLT VOLUME 8.1 fl (7.5-11.1); MONO % 7.1 % (3.8-10.2); NEUT % 69.5 % (42.8-82.8); PLATELET COUNT 284 10^3/uL (134-434); RBC 2.46 M/mm3 (3.60-5.2); RDW 17.4 % (11.6-15.6); WHITE BLOOD COUNT 8.5 K/mm3 (4.0-10.0)
[2023-06-08 11:41] LABS: BLOOD UREA NITROGEN 62.2 mg/dL (7-18)
[2023-06-08 17:11] LABS: HIV INTERPRETATION NEGATIVE (NEGATIVE)
[2023-06-08] MEDS: ATORVASTATIN CA 80 MG TABLET (FP) GT SCH (21:42)
[2023-06-08] MEDS: LATANOPROST 0.005% OPHTH SOLN 2.5ML BOTTLE OU SCH (21:49)
[2023-06-09] MEDS: INSULIN SLIDING SCALE (NOVOLOG) 1 VIAL SQ SCH ×4 (06:57→22:26)
[2023-06-09] MEDS: INSULIN (LEVEMIR) 100 UNITS/ML UNITS SQ SCH ×2 (06:57→22:24)
[2023-06-09] MEDS ORDERED: SODIUM CHLORIDE 250 ML IV PRN (07:54)
[2023-06-09] MEDS: AMINO ACIDS/PROTEIN HYDROLYS 30 ML LIQUID.PKT GT SCH (08:27)
[2023-06-09] MEDS ORDERED: EPOETIN ALFA-EPBX 10,000 UNIT/ML VIAL SQ ONE (09:00)
[2023-06-09 09:24] LABS: HEMATOCRIT 21.6 % (32.4-45.2); HEMOGLOBIN 7.1 GM/dL (10.7-15.3); MCH 30.6 pg (25.7-33.7); MCHC 32.8 g/dl (32.0-36.0); MEAN CELL VOLUME 93.4 fl (80-96); MEAN PLT VOLUME 8.2 fl (7.5-11.1); PLATELET COUNT 271 10^3/uL (134-434); RBC 2.31 M/mm3 (3.60-5.2); WHITE BLOOD COUNT 6.4 K/mm3 (4.0-10.0)
[2023-06-09 10:08] LABS: POTASSIUM 3.5 mmol/L (3.5-5.1)
[2023-06-09 10:09] LABS: CALCIUM 8.5 mg/dL (8.5-10.1)
[2023-06-09 10:10] LABS: BLOOD UREA NITROGEN 66.2 mg/dL (7-18)
[2023-06-09] MEDS: CLOPIDOGREL BISULFATE 75 MG TABLET (FP) PO SCH (10:58)
[2023-06-09] MEDS: ZINC SULFATE 220 MG CAPSULE (FP) GT SCH (10:58)
[2023-06-09] MEDS: PANTOPRAZOLE SODIUM 40 MG VIAL IVPUSH SCH ×2 (10:58→21:38)
[2023-06-09] MEDS: ASPIRIN 81 MG CHEWABLE TABLETS GT SCH (10:58)
[2023-06-09] MEDS: VITAMIN B COMP W-C 1 EA TABLET (NEPHRO-VITE) GT SCH (10:59)
[2023-06-09] MEDS: CARVEDILOL 12.5 MG TABLET (FP) GT SCH ×2 (11:51→21:38)
[2023-06-09] MEDS: amLODIPine BESYLATE 5 MG TABLET (FP) GT SCH (11:51)
[2023-06-09] MEDS: ATORVASTATIN CA 80 MG TABLET (FP) GT SCH (21:38)
[2023-06-09] MEDS: LATANOPROST 0.005% OPHTH SOLN 2.5ML BOTTLE OU SCH (21:39)
[2023-06-10] MEDS: INSULIN (LEVEMIR) 100 UNITS/ML UNITS SQ SCH ×2 (06:30→23:11)
[2023-06-10] MEDS: INSULIN SLIDING SCALE (NOVOLOG) 1 VIAL SQ SCH ×4 (06:31→23:30)
[2023-06-10] MEDS: AMINO ACIDS/PROTEIN HYDROLYS 30 ML LIQUID.PKT GT SCH (09:30)
[2023-06-10] MEDS: amLODIPine BESYLATE 5 MG TABLET (FP) GT SCH (10:07)
[2023-06-10] MEDS: ZINC SULFATE 220 MG CAPSULE (FP) GT SCH (10:07)
[2023-06-10] MEDS: CARVEDILOL 12.5 MG TABLET (FP) GT SCH ×2 (10:07→23:11)
[2023-06-10] MEDS: CLOPIDOGREL BISULFATE 75 MG TABLET (FP) PO SCH (10:07)
[2023-06-10] MEDS: VITAMIN B COMP W-C 1 EA TABLET (NEPHRO-VITE) GT SCH (10:07)
[2023-06-10] MEDS: ASPIRIN 81 MG CHEWABLE TABLETS GT SCH (10:07)
[2023-06-10] MEDS: PANTOPRAZOLE SODIUM 40 MG VIAL IVPUSH SCH ×2 (10:07→23:11)
[2023-06-10] MEDS: ATORVASTATIN CA 80 MG TABLET (FP) GT SCH (23:11)
[2023-06-10] MEDS: LATANOPROST 0.005% OPHTH SOLN 2.5ML BOTTLE OU SCH (23:30)
[2023-06-11] MEDS: INSULIN (LEVEMIR) 100 UNITS/ML UNITS SQ SCH ×2 (06:01→22:51)
[2023-06-11] MEDS: INSULIN SLIDING SCALE (NOVOLOG) 1 VIAL SQ SCH ×4 (06:01→22:54)
[2023-06-11 10:23] LABS: HEMATOCRIT 23.1 % (32.4-45.2); HEMOGLOBIN 7.6 GM/dL (10.7-15.3); MCH 30.3 pg (25.7-33.7); MCHC 32.8 g/dl (32.0-36.0); MEAN CELL VOLUME 92.6 fl (80-96); MEAN PLT VOLUME 8.6 fl (7.5-11.1); PLATELET COUNT 368 10^3/uL (134-434); RDW 16.5 % (11.6-15.6)
[2023-06-11] MEDS: AMINO ACIDS/PROTEIN HYDROLYS 30 ML LIQUID.PKT GT SCH (11:02)
[2023-06-11] MEDS: PANTOPRAZOLE SODIUM 40 MG VIAL IVPUSH SCH ×2 (11:02→22:55)
[2023-06-11] MEDS: ZINC SULFATE 220 MG CAPSULE (FP) GT SCH (11:03)
[2023-06-11] MEDS: VITAMIN B COMP W-C 1 EA TABLET (NEPHRO-VITE) GT SCH (11:03)
[2023-06-11] MEDS: amLODIPine BESYLATE 5 MG TABLET (FP) GT SCH (11:03)
[2023-06-11] MEDS: CLOPIDOGREL BISULFATE 75 MG TABLET (FP) PO SCH (11:03)
[2023-06-11] MEDS: CARVEDILOL 12.5 MG TABLET (FP) GT SCH ×2 (11:03→22:50)
[2023-06-11] MEDS: ASPIRIN 81 MG CHEWABLE TABLETS GT SCH (11:03)
[2023-06-11 11:05] LABS: ALBUMIN 1.8 g/dl (3.4-5.0); BILIRUBIN,TOTAL 0.4 mg/dL (0.2-1); BLOOD UREA NITROGEN 54.2 mg/dL (7-18); CALCIUM 8.8 mg/dL (8.5-10.1); CREATININE 1.8 mg/dL (0.55-1.3); POTASSIUM 3.6 mmol/L (3.5-5.1); TOT PROT 5.9 g/dl (6.4-8.2)
[2023-06-11 11:38] LABS: ANISOCYTOSIS 1+; MACROCYTOSIS 0
[2023-06-11] MEDS ORDERED: hydrALAZINE HCL 10 MG TABLET PO ONE (16:30)
[2023-06-11] MEDS: ATORVASTATIN CA 80 MG TABLET (FP) GT SCH (22:50)
[2023-06-11] MEDS: LATANOPROST 0.005% OPHTH SOLN 2.5ML BOTTLE OU SCH (23:05)
[2023-06-12] MEDS: INSULIN SLIDING SCALE (NOVOLOG) 1 VIAL SQ SCH ×4 (06:26→21:45)
[2023-06-12] MEDS: INSULIN (LEVEMIR) 100 UNITS/ML UNITS SQ SCH ×2 (06:26→21:45)
[2023-06-12] MEDS ORDERED: SODIUM CHLORIDE 250 ML IV PRN (07:54)
[2023-06-12] MEDS ORDERED: ACETAMINOPHEN 1000 MG/100 ML BAG IVPB PRN (10:25)
[2023-06-12] MEDS ORDERED: EPOETIN ALFA-EPBX 10,000 UNIT/ML VIAL SQ ONE (11:00)
[2023-06-12] MEDS: PANTOPRAZOLE SODIUM 40 MG VIAL IVPUSH SCH ×2 (12:55→22:35)
[2023-06-12 14:23] LABS: HEMATOCRIT 22.8 % (32.4-45.2); HEMOGLOBIN 7.5 GM/dL (10.7-15.3); MCH 30.3 pg (25.7-33.7); MCHC 32.7 g/dl (32.0-36.0); MEAN CELL VOLUME 92.5 fl (80-96); MEAN PLT VOLUME 8.4 fl (7.5-11.1); PLATELET COUNT 368 10^3/uL (134-434); RBC 2.47 M/mm3 (3.60-5.2); RDW 16.6 % (11.6-15.6); WHITE BLOOD COUNT 6.8 K/mm3 (4.0-10.0)
[2023-06-12 14:45] LABS: POTASSIUM 3.4 mmol/L (3.5-5.1)
[2023-06-12 14:46] LABS: ALBUMIN 1.8 g/dl (3.4-5.0); CALCIUM 8.7 mg/dL (8.5-10.1)
[2023-06-12 14:47] LABS: BLOOD UREA NITROGEN 68.8 mg/dL (7-18)
[2023-06-12 14:53] LABS: TOT PROT 6.1 g/dl (6.4-8.2)
[2023-06-12 14:55] LABS: BILIRUBIN,TOTAL 0.2 mg/dL (0.2-1)
[2023-06-12] MEDS: CARVEDILOL 12.5 MG TABLET (FP) GT SCH ×2 (17:15→21:46)
[2023-06-12] MEDS: amLODIPine BESYLATE 5 MG TABLET (FP) GT SCH (17:15)
[2023-06-12] MEDS: ASPIRIN 81 MG CHEWABLE TABLETS GT SCH (17:15)
[2023-06-12] MEDS: CLOPIDOGREL BISULFATE 75 MG TABLET (FP) PO SCH (17:15)
[2023-06-12] MEDS: ACETAMINOPHEN 650 MG/20.3 ML ORAL SOLUTION (CUPS) GT PRN (17:28)
[2023-06-12] MEDS: AMINO ACIDS/PROTEIN HYDROLYS 30 ML LIQUID.PKT GT SCH (17:41)
[2023-06-12] MEDS: VITAMIN B COMP W-C 1 EA TABLET (NEPHRO-VITE) GT SCH (17:41)
[2023-06-12] MEDS: ZINC SULFATE 220 MG CAPSULE (FP) GT SCH (17:42)
[2023-06-12] MEDS: ATORVASTATIN CA 80 MG TABLET (FP) GT SCH (21:46)
[2023-06-12] MEDS: LATANOPROST 0.005% OPHTH SOLN 2.5ML BOTTLE OU SCH (22:34)
[2023-06-13] MEDS: INSULIN SLIDING SCALE (NOVOLOG) 1 VIAL SQ SCH ×4 (06:19→22:54)
[2023-06-13] MEDS: INSULIN (LEVEMIR) 100 UNITS/ML UNITS SQ SCH ×2 (06:19→22:53)
[2023-06-13] MEDS: VITAMIN B COMP W-C 1 EA TABLET (NEPHRO-VITE) GT SCH (09:44)
[2023-06-13] MEDS: CARVEDILOL 12.5 MG TABLET (FP) GT SCH ×2 (09:44→22:53)
[2023-06-13] MEDS: amLODIPine BESYLATE 5 MG TABLET (FP) GT SCH (09:44)
[2023-06-13] MEDS: CLOPIDOGREL BISULFATE 75 MG TABLET (FP) PO SCH (09:44)
[2023-06-13] MEDS: ASPIRIN 81 MG CHEWABLE TABLETS GT SCH (09:44)
[2023-06-13] MEDS: AMINO ACIDS/PROTEIN HYDROLYS 30 ML LIQUID.PKT GT SCH (09:45)
[2023-06-13] MEDS: ZINC SULFATE 220 MG CAPSULE (FP) GT SCH (09:45)
[2023-06-13] MEDS: PANTOPRAZOLE SODIUM 40 MG VIAL IVPUSH SCH ×2 (09:46→22:55)
[2023-06-13] MEDS: ATORVASTATIN CA 80 MG TABLET (FP) GT SCH (22:54)
[2023-06-13] MEDS: LATANOPROST 0.005% OPHTH SOLN 2.5ML BOTTLE OU SCH (22:55)
[2023-06-14] MEDS: INSULIN (LEVEMIR) 100 UNITS/ML UNITS SQ SCH (06:41)
[2023-06-14] MEDS: INSULIN SLIDING SCALE (NOVOLOG) 1 VIAL SQ SCH ×2 (06:41→12:07)
[2023-06-14] MEDS ORDERED: SODIUM CHLORIDE 250 ML IV PRN (13:00)
[2023-06-14] MEDS ORDERED: EPOETIN ALFA-EPBX 10,000 UNIT/ML VIAL SQ ONE (14:00)
[2023-06-14] MEDS: ACETAMINOPHEN 650 MG/20.3 ML ORAL SOLUTION (CUPS) GT PRN (15:14)
[2023-06-14] MEDS: CLOPIDOGREL BISULFATE 75 MG TABLET (FP) PO SCH (15:15)
[2023-06-14] MEDS: VITAMIN B COMP W-C 1 EA TABLET (NEPHRO-VITE) GT SCH (15:15)
[2023-06-14] MEDS: AMINO ACIDS/PROTEIN HYDROLYS 30 ML LIQUID.PKT GT SCH (15:15)
[2023-06-14] MEDS: amLODIPine BESYLATE 5 MG TABLET (FP) GT SCH (15:15)
[2023-06-14] MEDS: ZINC SULFATE 220 MG CAPSULE (FP) GT SCH (15:16)
[2023-06-14] MEDS: ASPIRIN 81 MG CHEWABLE TABLETS GT SCH (15:16)
[2023-06-14] MEDS: PANTOPRAZOLE SODIUM 40 MG VIAL IVPUSH SCH (15:17)
[2023-06-14] MEDS: CARVEDILOL 12.5 MG TABLET (FP) GT SCH (16:11)
[2023-06-14 16:42] VITALS: BP 150/72; PULSE 75; RESP 19; TEMP 98.4
== END 2023-06-14 16:23 | DRG 640 ==
LOC: JER 10:43 → JERBED 15:34 → JICU 18:12 → J5S 05-31 00:07
PROVIDERS: ADMIT Internal Medicine
PROC: 5A1955Z Respiratory Ventilation, Greater than 96 Consecutive Hours (ICD-10-PCS; 2023-05-23)
PROC: 30233N1 Transfusion of Nonautologous Red Blood Cells into Peripheral Vein, Percutaneous Approach (ICD-10-PCS; 2023-05-23)
PROC: 06HM33Z Insertion of Infusion Device into Right Femoral Vein, Percutaneous Approach (ICD-10-PCS; principal; 2023-06-05)
PROC: B54BZZA Ultrasonography of Right Lower Extremity Veins, Guidance (ICD-10-PCS; 2023-06-05)
PROC: 5A1D70Z Performance of Urinary Filtration, Intermittent, Less than 6 Hours Per Day (ICD-10-PCS; 2023-06-05)
PROC: 05HM33Z Insertion of Infusion Device into Right Internal Jugular Vein, Percutaneous Approach (ICD-10-PCS; 2023-06-06)
PROC: B543ZZA Ultrasonography of Right Jugular Veins, Guidance (ICD-10-PCS; 2023-06-06)
PROC: 5A1D70Z Performance of Urinary Filtration, Intermittent, Less than 6 Hours Per Day (ICD-10-PCS; 2023-06-07)
PROC: 5A1D70Z Performance of Urinary Filtration, Intermittent, Less than 6 Hours Per Day (ICD-10-PCS; 2023-06-09)
PROC: 5A1D70Z Performance of Urinary Filtration, Intermittent, Less than 6 Hours Per Day (ICD-10-PCS; 2023-06-12)
PROC: 5A1D70Z Performance of Urinary Filtration, Intermittent, Less than 6 Hours Per Day (ICD-10-PCS; 2023-06-14)
DX: E87.70 Fluid overload, unspecified (principal); I21.4 Non-ST elevation (NSTEMI) myocardial infarction; N18.6 End stage renal disease; N17.9 Acute kidney failure, unspecified; I13.2 Hypertensive heart and chronic kidney disease with heart failure and with stage 5 chronic kidney disease, or end stage renal disease; I50.32 Chronic diastolic (congestive) heart failure; J96.11 Chronic respiratory failure with hypoxia; E87.1 Hypo-osmolality and hyponatremia; I25.10 Atherosclerotic heart disease of native coronary artery without angina pectoris; L89.132 Pressure ulcer of right lower back, stage 2; R68.0 Hypothermia, not associated with low environmental temperature; I35.0 Nonrheumatic aortic (valve) stenosis; D32.9 Benign neoplasm of meninges, unspecified; D63.1 Anemia in chronic kidney disease; E11.65 Type 2 diabetes mellitus with hyperglycemia; E11.22 Type 2 diabetes mellitus with diabetic chronic kidney disease; H40.10X0 Unspecified open-angle glaucoma, stage unspecified; L89.312 Pressure ulcer of right buttock, stage 2; E78.5 Hyperlipidemia, unspecified; Z95.5 Presence of coronary angioplasty implant and graft; Z93.1 Gastrostomy status; Z93.0 Tracheostomy status; Z99.2 Dependence on renal dialysis
CPT/HCPCS: 0241U-QW; 36415; 36430; 70450-TC; 71045-TC-FY; 76000-TC-FY; 76705-TC; 76775-TC; 76937; 80048; 80053; 81003; 82272; 82436; 82533; 82550; 82553; 82962; 82977; 83036; 83516; 83520; 83540; 83550; 83605; 83735; 83880; 83930; 83935; 84100; 84133; 84155; 84165; 84300; 84439; 84443; 84484; 84540; 85025; 85027; 85045; 85610; 85730; 86038; 86160; 86256; 86704; 86803; 86850; 86900; 86901; 86922; 87040; 87086; 87340; 87389; 87517; 93005; 93010; 93306-TC; 94002; 94760; 99285-25; C1750; J1644; P9038; P9058; Q5106